=== PATIENT | female | born 1985 | race Caucasian/White ===

== ENCOUNTER 2017-05-16 11:01 | Emergency (ER) | payer OTHER ==
[2017-05-16 11:14] VITALS: TEMP 98.3; BMI 29.2
[2017-05-16] MEDS ORDERED: ASPIRIN 81 MG CHEWABLE TABLETS PO ONE (11:35)
--- NOTE | 2017-05-16 11:41 | PDOC ---
History of Present Illness - General Chief Complaint: Chest Pain Stated Complaint: CHEST PRESSURE, DIZZINESS Time Seen by Provider: 05/16/17 11:18 History Source: Patient Exam Limitations: No Limitations - History of Present Illness Initial Comments: 05/16/17 11:37 This is a 31-year-old woman with past medical history of asthma who presents to the emergency department today with left-sided chest heaviness radiating to her left arm starting at approximately 1:30 in the morning. Patient states she was asleep and the heaviness caused her to wake up. She rates the pain 6/10. Patient took Advil prior to the ER with no relief in symptoms. Patient reports she feels short of breath and lightheaded also. She states her shortness of breath is different than her usual asthmatic symptoms.She denies any headaches, blurry vision, abdominal pain, nausea, vomiting, diaphoresis. Patient does take oral contraceptives and had surgery on her right ankle in January 2017. 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 EtOH: Occasional Tobacco: Denies Illicits: Denies Family history: Father alive with hypertension and ND in his late 30s, CVA; mother alive with hypertension starting in her 30s Past History - Past Medical History Allergies/Adverse Reactions: Allergies Allergy/AdvReac Type Severity Reaction Status Date / Time No Known Allergies Allergy Verified 05/16/17 11:10 Home Medications: Ambulatory Orders Albuterol Sulfate Inhaler - [Ventolin HFA Inhaler -] 1 - 2 inh PO DAILY PRN Hydrochlorothiazide [Hctz -] 12.5 mg PO DAILY 05/16/17 Montelukast Na [Singulair -] 10 mg PO HS 05/16/17 Asthma: Yes COPD: No - Suicide/Smoking/Psychosocial Hx Smoking History: Never smoked Have you smoked in the past 12 months: No Information on smoking cessation initiated: No Hx Alcohol Use: No Drug/Substance Use Hx: No Substance Use Type: None Review of Systems - Review of Systems Able to Perform ROS?: Yes Is the patient limited Amharic proficient: No Constitutional: No: Symptoms Reported HEENTM: No: Symptoms Reported Respiratory: Yes: See HPI Cardiac (ROS): Yes: See HPI ABD/GI: No: Symptoms Reported : No: Symptoms Reported Musculoskeletal: No: Symptoms Reported Integumentary: No: Symptoms Reported Neurological: No: Symptoms reported *Physical Exam - Vital Signs Last Vital Signs Temp Pulse Resp BP Pulse Ox 98.3 F 69 18 146/90 100 05/16/17 11:11 05/16/17 15:42 05/16/17 15:42 05/16/17 15:42 05/16/17 15:42 - Physical Exam General Appearance: Yes: Appropriately Dressed. No: Apparent Distress HEENT: positive: EOMI, MARLENE, Normal ENT Inspection Neck: positive: Trachea midline, Supple Respiratory/Chest: positive: Lungs Clear, Normal Breath Sounds. negative: Chest Tender, Respiratory Distress, Accessory Muscle Use Cardiovascular: positive: Regular Rhythm, Regular Rate, S1, S2. negative: Edema , JVD, Murmur Gastrointestinal/Abdominal: positive: Normal Bowel Sounds, Tender. negative: Soft Musculoskeletal: positive: Normal Inspection. negative: CVA Tenderness Extremity: positive: Normal Inspection Integumentary: positive: Normal Color, Dry, Warm Neurologic: positive: routeman II-XII NML intact, Fully Oriented, Alert, Normal Mood/ Affect, Normal Response, Motor Strength 5/5, Finger to Nose Heart Score/ECG Review - History History: Slightly suspicious - Electrocardiogram EKG: Normal - Age Age: </= 45 - Risk Factors Risk Factors Heart Score: Yes Positive family hx of cardiac disease Based on the list above the patient has:: 1-2 risk factors - ECG Intrepretation Rhythm: Regular Rhythm ED Treatment Course - LABORATORY CBC & Chemistry Diagram: 05/16/17 12:01 05/16/17 12:01 - ADDITIONAL ORDERS Additional order review: Laboratory Results 05/16/17 05/16/17 05/16/17 15:35 12:01 12:01 PT with INR INR D-Dimer 410 Sodium 137 Potassium 3.7 Chloride 102 Carbon Dioxide 27 Anion Gap 8 BUN 13 Creatinine 0.8 Creat Clearance w eGFR > 60 Random Glucose 86 Calcium 8.6 Magnesium 1.8 Total Bilirubin 0.5 AST 18 ALT 24 Alkaline Phosphatase 80 Creatine Kinase 55 79 Troponin I < 0.02 < 0.02 Total Protein 7.5 Albumin 3.9 Urine Color Urine Appearance Urine pH Ur Specific [place] Urine Protein Urine Glucose (UA) Urine Ketones Urine Blood Urine Nitrite Urine Bilirubin Urine Urobilinogen Ur Leukocyte Esterase Urine HCG, Qual 05/16/17 05/16/17 12:01 12:01 PT with INR 11.00 INR 0.97 D-Dimer Sodium Potassium Chloride Carbon Dioxide Anion Gap BUN Creatinine Creat Clearance w eGFR Random Glucose Calcium Magnesium Total Bilirubin AST ALT Alkaline Phosphatase Creatine Kinase Troponin I Total Protein Albumin Urine Color Straw Urine Appearance Clear Urine pH 6.0 Ur Specific [place] 1.006 Urine Protein Negative Urine Glucose (UA) Negative Urine Ketones Negative Urine Blood Negative Urine Nitrite Negative Urine Bilirubin Negative Urine Urobilinogen Negative Ur Leukocyte Esterase Negative Urine HCG, Qual Negative 05/16/17 12:01 RBC 4.61 MCV 89.8 MCHC 32.9 RDW 12.9 MPV 8.5 Neutrophils % 57.9 Lymphocytes % 31.5 Monocytes % 6.0 Eosinophils % 3.7 Basophils % 0.9 - RADIOLOGY Radiology Studies Ordered: Category Date Time Status CHEST PA & LAT [RAD] Stat Radiology 05/16/17 11:35 Completed - Medications Given in the ED: ED Medications Discontinued Medications Generic Name Dose Route Start Last Admin Trade Name Freq PRN Reason Stop Dose Admin Aspirin 162 mg 05/16/17 11:35 05/16/17 12:01 Asa - PO 05/16/17 11:36 162 mg ONCE ONE Administration Sodium Chloride 1,000 mls @ 1,000 mls/hr 05/16/17 13:02 05/16/17 14:00 Normal Saline - IV 05/16/17 14:01 1,000 mls/hr ASDIR STA Administration Medical Decision Making - Medical Decision Making 05/16/17 11:41 A/P: This is a 31-year-old woman with past medical history of asthma who presents to the emergency department today with left-sided chest heaviness radiating to her left arm starting at approximately 1:30 in the morning. Patient states she was asleep and the heaviness caused her to wake up. She rates the pain 6/10. Patient took Advil prior to the ER with no relief in symptoms. Patient reports she feels short of breath and lightheaded also. She states her shortness of breath is different than her usual asthmatic symptoms.She denies any headaches, blurry vision, abdominal pain, nausea, vomiting, diaphoresis. Patient does take oral contraceptives and had surgery on her right ankle in January 2017. Respirations even and unlabored. Lungs clear to auscultation bilaterally. RRR. S1 and S2 present. No murmur, rub or gallop noted. No JVD. Normoactive bowel sounds. Abdomen soft nontender nondistended. Lower extremities with swelling noted to surgical site of right ankle. Calves nontender no erythema or cords present. Negative Homans sign bilaterally. Cranial nerves II through XII grossly intact. Normal [id number]. Vital signs in triage remarkable for mild hypertension of 142/96. Differential diagnoses include ACS, PE, pneumonia, anxiety, hiatal hernia, Musculoskeletal pain I will obtain CBC, CMP, cardiac profile, d-dimer, chest x-ray, urine , urinalysis, EKG. Well's score for PE-0. I will reevaluate the patient after all testing is been completed. 05/16/17 12:22 CXR as read by Dr. Cassidy: 2 views revealed clear lungs, normal mediastinum and sharp angles. The bones and soft tissues are intact. Impression: No acute chest pathology. 05/16/17 12:57 Cardiac enzymes negative 1. D-dimer <500. I will perform a CTA to rule out pulmonary embolus. 05/16/17 14:27 CT scan of the chest with IV contrast as read by Dr. Kendall: No gross filling defect is seen within the main pulmonary artery and its proximal branches. The thoracic and visualized portion of the upper abdominal aorta is normally and has without evidence of aneurysmal dilation or dissection. The heart is within normal limits in size. No gross mediastinal or hilar enlarged lymph nodes are identified. The lungs are clear. No pneumothorax or pleural effusion is seen bilaterally. Include portion of the upper abdomen appears unremarkable with heterogeneous enhancement of the spleen likely due to rapid intravenous contrast injection. Visualized osseous structures appear intact. Neck slight impression: Unremarkable examination. There is no evidence of pulmonary embolus within the main pulmonary arteries proximal branches bilaterally. The lungs clear without evidence of focal infiltrates or pulmonary nodules and then a fight. No pneumothorax or pleural effusion is seen bilaterally. 05/16/17 16:49 Repeat troponin is negative. I will discharge the patient to follow-up with her primary doctor. I discussed the physical exam findings, ancillary test results and final diagnoses with the patient. I answered all of the patient's questions. The patient was satisfied with the care received and felt comfortable with the discharge plan and treatment plan. The patient will call her doctor within 96 hours to arrange follow-up and will return to the Emergency Department with any new, persistent or worsening symptoms. *DC/Admit/Observation/Transfer Diagnosis at time of Disposition: Left sided chest pain - Discharge Dispostion Disposition: HOME Condition at time of disposition: Stable Admit: No - Referrals Referrals: Corey Boothe [Primary Care Provider] - - Patient Instructions Printed Discharge Instructions: DI for Atypical Chest Pain Additional Instructions: Make an appointment with your primary doctor for evaluation within the next week. Return to emergency department for shortness of breath, chest pain, chest heaviness, dizziness, or any other concerns. Thank you very much for choosing us to provide your emergent healthcare needs. - Post Discharge Activity Forms/Work/School Notes: Back to Work
[2017-05-16] MEDS ORDERED: ASPIRIN 81 MG CHEWABLE TABLETS ONE (11:49)
[2017-05-16 12:20] LABS: BASO % 0.9 % (0-2.0); EOS % 3.7 % (0-4.5); HCG,QUALITATIVE URINE NEGATIVE; HEMATOCRIT 41.4 % (32.4-45.2); HEMOGLOBIN 13.6 GM/dL (10.7-15.3); LYMPH % 31.5 % (8-40); MCH 29.6 pg (25.7-33.7); MCHC 32.9 g/dl (32.0-36.0); MEAN CELL VOLUME 89.8 fl (80-96); MEAN PLT VOLUME 8.5 fl (7.5-11.1); NEUT % 57.9 % (42.8-82.8); PLATELET COUNT 327 K/MM3 (134-434); RBC 4.61 M/mm3 (3.60-5.2); RDW 12.9 % (11.6-15.6); WHITE BLOOD COUNT 7.2 K/mm3 (4.0-10.0)
[2017-05-16 12:27] LABS: URINE APPEARANCE CLEAR; URINE BILIRUBIN NEGATIVE (NEGATIVE); URINE BLOOD NEGATIVE (NEGATIVE); URINE COLOR STRAW; URINE GLUCOSE (UA) NEGATIVE (NEGATIVE); URINE KETONE NEGATIVE (NEGATIVE); URINE LEUK ESTERASE NEGATIVE (NEGATIVE); URINE NITRITE NEGATIVE (NEGATIVE); URINE PROTEIN NEGATIVE (NEGATIVE); URINE UROBILINOGEN NEGATIVE mg/dL (0.2-1.0)
[2017-05-16 12:47] LABS: ALBUMIN 3.9 g/dl (3.4-5.0); ANION GAP 8 (8-16); BILIRUBIN,TOTAL 0.5 mg/dL (0.2-1.0); BLOOD UREA NITROGEN 13 mg/dL (7-18); CALCIUM 8.6 mg/dL (8.5-10.1); CHLORIDE 102 mmol/L (98-107); CO2 27 mmol/L (21-32); CREATININE 0.8 mg/dL (0.55-1.02); GLUCOSE,RANDOM 86 mg/dL (74-106); MAGNESIUM 1.8 mg/dL (1.8-2.4); POTASSIUM 3.7 mmol/L (3.5-5.1); SGOT/AST 18 U/L (15-37); SGPT/ALT 24 U/L (12-78); SODIUM 137 mmol/L (136-145); TOT PROT 7.5 g/dl (6.4-8.2)
[2017-05-16 12:48] LABS: INR 0.97 (0.82-1.09)
--- NOTE | 2017-05-16 12:48 | EKG ---
Test Reason : Blood Pressure : / mmHG Vent. Rate : 083 BPM Atrial Rate : 083 BPM P-R Int : 132 ms QRS Dur : 086 ms QT Int : 366 ms P-R-T Axes : 044 058 042 degrees QTc Int : 430 ms NORMAL SINUS RHYTHM POSSIBLE LEFT ATRIAL ENLARGEMENT BORDERLINE ECG NO PREVIOUS ECGS AVAILABLE Confirmed by CLEVE DIALLO MD ([id number]) on 05/16/2017 12:48:27 PM Referred By: Confirmed By:CLEVE DIALLO MD
[2017-05-16 12:50] LABS: ALK PHOS 80 U/L (45-117)
[2017-05-16] MEDS ORDERED: SODIUM CHLORIDE 1,000 ML IV STA (13:02)
--- NOTE | 2017-05-16 13:16 | PDOC ---
*Physical Exam - Vital Signs Last Vital Signs Temp Pulse Resp BP Pulse Ox 98.3 F 80 18 142/96 100 05/16/17 11:11 05/16/17 11:11 05/16/17 11:11 05/16/17 11:11 05/16/17 11:11 - Physical Exam Comments: 05/16/17 13:14 Vital signs stable Well-appearing Lungs are clear Heart is regular without murmur Right ankle incision well-healed, no leg swelling or calf tenderness Heart Score/ECG Review - History History: Slightly suspicious - Electrocardiogram EKG: Normal - Age Age: </= 45 - Risk Factors Risk Factors Heart Score: Yes Positive family hx of cardiac disease Based on the list above the patient has:: 1-2 risk factors - Troponin Troponin: </= normal limit - Score Heart Score - Total: 1 #1 General ECG Interpretation: Sinus Rhythm, Normal Rate, Normal Intervals, No acute ischemic changes ED Treatment Course - LABORATORY CBC & Chemistry Diagram: 05/16/17 12:01 05/16/17 12:01 - ADDITIONAL ORDERS Additional order review: Laboratory Results 05/16/17 05/16/17 05/16/17 12:01 12:01 12:01 PT with INR 11.00 INR 0.97 D-Dimer 410 Sodium 137 Potassium 3.7 Chloride 102 Carbon Dioxide 27 Anion Gap 8 BUN 13 Creatinine 0.8 Creat Clearance w eGFR > 60 Random Glucose 86 Calcium 8.6 Magnesium 1.8 Total Bilirubin 0.5 AST 18 ALT 24 Alkaline Phosphatase 80 Creatine Kinase 79 Troponin I < 0.02 Total Protein 7.5 Albumin 3.9 Urine Color Urine Appearance Urine pH Ur Specific [place] Urine Protein Urine Glucose (UA) Urine Ketones Urine Blood Urine Nitrite Urine Bilirubin Urine Urobilinogen Ur Leukocyte Esterase Urine HCG, Qual 05/16/17 12:01 PT with INR INR D-Dimer Sodium Potassium Chloride Carbon Dioxide Anion Gap BUN Creatinine Creat Clearance w eGFR Random Glucose Calcium Magnesium Total Bilirubin AST ALT Alkaline Phosphatase Creatine Kinase Troponin I Total Protein Albumin Urine Color Straw Urine Appearance Clear Urine pH 6.0 Ur Specific [place] 1.006 Urine Protein Negative Urine Glucose (UA) Negative Urine Ketones Negative Urine Blood Negative Urine Nitrite Negative Urine Bilirubin Negative Urine Urobilinogen Negative Ur Leukocyte Esterase Negative Urine HCG, Qual Negative 05/16/17 12:01 RBC 4.61 MCV 89.8 MCHC 32.9 RDW 12.9 MPV 8.5 Neutrophils % 57.9 Lymphocytes % 31.5 Monocytes % 6.0 Eosinophils % 3.7 Basophils % 0.9 - RADIOLOGY Radiology Studies Ordered: Category Date Time Status CHEST CTA [CT] Stat CT Scan 05/16/17 12:51 Ordered - Medications Given in the ED: ED Medications Discontinued Medications Generic Name Dose Route Start Last Admin Trade Name Alexus PRN Reason Stop Dose Admin Aspirin 162 mg 05/16/17 11:35 05/16/17 12:01 Asa - PO 05/16/17 11:36 162 mg ONCE ONE Administration Medical Decision Making - Medical Decision Making 05/16/17 13:14 Patient seen and evaluated with the nurse practitioner. I agree with the overall evaluation, assessment, and management with the following summary of visit: Healthy 31-year-old female with no severe past medical history presents with acute onset of left chest pressure with left arm tingling that awoke her from sleep on the overnight. Patient was in her usual state of normal health, she had a right ankle ORIF in January and just had her cam boot removed last week, she has been on control for 2 years. No other travel, no leg swelling, no history of exercise intolerance. No associated cough, but her chest pressure was associated with dyspnea and lightheadedness, so she presented to the emergency department. Exam as noted 31-year-old female with risk factors for PE presents with acute onset left chest pressure, though hemodynamically stable and well-appearing. Given the recent right ankle immobilization and acute chest pain, his above low risk for PE. This would be atypical for ACS, though she does have a risk factor in her father, who had an IL in his upper 30s. Labs including troponin 2 EKG is nonischemic, cxr is clear D-dimer sent, but would CTA chest for moderate risk reassess 05/16/17 14:28 No PE on CTA. 2nd trop for low risk chest pain, dispo accordingly *DC/Admit/Observation/Transfer Diagnosis at time of Disposition: Left sided chest pain - Referrals Referrals: Corey Boothe [Primary Care Provider] - - Patient Instructions - Post Discharge Activity
[2017-05-16 15:43] VITALS: BP 146/90; PULSE 69
== END 2017-05-16 17:11 | disposition home or self-care (01) ==
LOC: JER 11:01
PROC: 3E0337Z Introduction of Electrolytic and Water Balance Substance into Peripheral Vein, Percutaneous Approach (ICD-10-PCS; principal; 2017-05-16)
DX: R07.9 Chest pain, unspecified (principal)
CPT/HCPCS: 36415; 71046-TC; 71275-TC; 80053; 81003; 82550; 83735; 84484; 84703; 85025; 85379; 85610; 93005; 93010; 99283-25